=== PATIENT | male | born 1975 | race Caucasian/White ===

== ENCOUNTER 2025-02-09 20:13 | Emergency (ER) | payer BC, MEDICAID, OTHER ==
[~2025-02-09] VITALS: Ht 167.6 cm; Wt 97.1 kg
[2025-02-09] MEDS ORDERED: IBUP-1490 PO (20:56)
[2025-02-09] MEDS: KETOROLAC TROMETHAMINE 15 MG/ML VIAL IM ONE (21:06)
[2025-02-09 21:10] VITALS: BP 127/84; TEMP 98.3; O2SAT 98
== END 2025-02-09 21:10 | disposition home or self-care (01) ==
LOC: ER 20:42
DX: M79.652 Pain in left thigh (principal)
CPT/HCPCS: 99283; 96372; J1885